=== PATIENT | female | born 1995 | race Caucasian/White ===

== ENCOUNTER 2020-12-26 02:26 | Emergency (ER) | payer BC ==
[~2020-12-26] VITALS: Ht 149.9 cm; Wt 59.1 kg
[2020-12-26 02:29] VITALS: BP 138/63; Ht 149.9 cm; Wt 59.1 kg
[2020-12-26] MEDS ORDERED: ADDERALL 20 MG20 M1 PO (02:30)
[2020-12-26] MEDS ORDERED: PROAIR HFA8.5 G1 INH ×2 (02:31→02:46)
[2020-12-26] MEDS ORDERED: FLUTICASONE PRO16 GM NASAL (02:46)
[2020-12-26] MEDS ORDERED: CLEOCIN HCL300 MG PO (02:46)
== END 2020-12-26 03:17 | disposition home or self-care (01) ==
LOC: D.ER 02:26
DX: J01.90 Acute sinusitis, unspecified (principal); J45.909 Unspecified asthma, uncomplicated; R06.02 Shortness of breath